=== PATIENT | female | born 1955 | race Caucasian/White ===

== ENCOUNTER 2019-10-05 10:13 | Inpatient (IN) | payer OTHER ==
[~2019-10-05] VITALS: Ht 167.6 cm; Wt 43.5 kg
[2019-10-05 10:20] VITALS: BP 218/119
[2019-10-05] MEDS ORDERED: TOPROL XL50 MG PO (10:25)
[2019-10-05] MEDS ORDERED: XANAX 0.25 MG0.25 MG PO (10:26)
[2019-10-05] MEDS ORDERED: HYDROCODON-ACE1 EAC5 PO (10:26)
[2019-10-05 10:54] LABS: URINE BILIRUBIN NEGATIVE (Negative); URINE BLOOD NEGATIVE (Negative); URINE CLARITY CLEAR; URINE COLOR YELLOW; URINE GLUCOSE-RANDOM NEGATIVE (Negative); URINE KETONES NEGATIVE (Negative); URINE LEUKOCYTES-REFLEX NEGATIVE (Negative); URINE NITRITE-REFLEX NEGATIVE (Negative); URINE PROTEIN NEGATIVE (Negative); URINE UROBILINOGEN 0.2 E.U./dl (0.2-1.0)
[2019-10-05 10:56] LABS: HEMATOCRIT 44.5 % (37.0-47.0); HEMOGLOBIN 14.8 gm/dL (12.0-15.0); MCH 30.5 pg (26.0-34.0); MCHC 33.3 g/dL (28.0-37.0); MCV 91.6 fL (80.0-100.0); MPV 10.2 fl. (7.2-11.1); NUCLEATED RBCS 0 /100WBC; PLATELET COUNT* 261 thou/uL (150-400); RBC 4.86 mil/uL (4.20-5.00); RDW-CV 16.4 % (10.5-14.5); WBC 9.1 thou/uL (4.0-11.0)
[2019-10-05 11:12] LABS: INFLUENZA A ANTIGEN Negative (Negative); INFLUENZA B ANTIGEN Negative (Negative)
[2019-10-05 11:24] LABS: CALCIUM 8.7 mg/dL (8.5-10.1); CREATININE 0.9 mg/dL (0.6-1.3); POTASSIUM 3.6 mmol/L (3.5-5.1)
[2019-10-05 11:35] LABS: ALBUMIN 3.3 g/dL (3.4-5.0); TOTAL BILIRUBIN 0.3 mg/dL (<0.1-1.0)
[2019-10-05 11:56] LABS: ABSOLUTE EOSINOPHILS 0.1 thou/uL (0.0-0.7); ABSOLUTE LYMPHOCYTES 1.1 thou/uL (0.8-5.3); ABSOLUTE MONOCYTES 0.3 thou/uL (0.0-1.2); ABSOLUTE NEUTROPHILS 7.6 thou/uL (1.6-8.1); ANISOCYTOSIS 1+; PLATELET ESTIMATE ADEQUATE; POIKILOCYTOSIS 1+
--- NOTE | 2019-10-05 15:07 | NUR ---
REPORT GIVEN TO TERESSA MONTEMAYOR WHO IS TO ASSUME PT CARE INPATIENT NURSE.
[2019-10-05 15:10] VITALS: BP 164/107; BP 164/96
[2019-10-05 15:44] VITALS: BP 149/89
--- NOTE | 2019-10-05 17:26 | NUR ---
PT ADMITTED VIA CART FROM ED TO FLOOR AT 1520, REPORT RECEIVED FROM TERESSA KENNEDY. PT ORIENTED TO ROOM AND CALL LIGHT. ADMISSION ASSESSMENT AND HISTORY CHARTED. PT IN ENHANCED ISOLATION TO RULEOUT COVID. PT ABLE TO ANSWER ORIENTATION QUESTIONS APPROPRIATELY BUT HAS INTERMITTENT AUDIBLE AND VISUAL HALLUCINATIONS. PT HAS SCATTERED THOUGHTS AND WORD SALAD. PT REDIRECTABLE, MED SURGE STATUS, ON RA SAT 95%, PT DENIES ANY PAIN OR SHORTNESS OF BREATH. PT STATES SHE HASN'T SLEPT IN 4 DAYS DUE TO RUNNING OUT OF XANAX. EMPTY BOTTLE OF 30 DAY RX OF NORCO 70 TABS OF 10 MG FILLED FOUND IN JACKET POCKET. SEPSIS SCREENING COMPLETE, PT SCREENED NEGATIVE. BED ALARM IN PLACE, BED IN LOW POSITION, CALL LIGHT WITHIN REACH, WILL CONTINUE POC.
[2019-10-05 22:30] VITALS: BP 167/90
[2019-10-06 04:00] VITALS: BP 168/102
[2019-10-06 04:38] LABS: ABSOLUTE BASOPHILS 0.1 thou/uL (0.0-0.2); ABSOLUTE EOSINOPHILS 0.1 thou/uL (0.0-0.7); ABSOLUTE MONOCYTES 0.5 thou/uL (0.0-1.2); ABSOLUTE NEUTROPHILS 3.7 thou/uL (1.6-8.1); EOSINOPHILS 1.8 %; HEMATOCRIT 38.3 % (37.0-47.0); LYMPHOCYTES 31.6 %; MCH 30.7 pg (26.0-34.0); MCHC 33.4 g/dL (28.0-37.0); MCV 91.8 fL (80.0-100.0); MONOCYTES 7.3 %; MPV 10.2 fl. (7.2-11.1); NUCLEATED RBCS 0 /100WBC; POLYS 58.3 %; RBC 4.17 mil/uL (4.20-5.00); RDW-CV 16.4 % (10.5-14.5); WBC 6.3 thou/uL (4.0-11.0)
[2019-10-06 04:51] LABS: HEMOGLOBIN 12.8 gm/dL (12.0-15.0); PLATELET COUNT* 186 thou/uL (150-400)
[2019-10-06 05:03] LABS: ALBUMIN 2.6 g/dL (3.4-5.0); CALCIUM 7.7 mg/dL (8.5-10.1); CREATININE 0.8 mg/dL (0.6-1.3); POTASSIUM 3.1 mmol/L (3.5-5.1); TOTAL BILIRUBIN 0.3 mg/dL (<0.1-1.0); TOTAL PROTEIN 6.3 g/dL (6.4-8.2)
[2019-10-06 08:00] VITALS: BP 165/96
--- NOTE | 2019-10-06 09:00 | NUR ---
ASSUMED CARE OF PT AT 0730. PT RESTING IN BED. PT A&0X4, MORE ALERT AND COHERENT TODAY-NO HAULLICINATIONS. PT STATES "I SLEPT THE BEST I HAVE IN YEARS LAST NIGHT" I FEEL SO MUCH BETTER TODAY. PT COMPLAINED OF PAIN TO BACK-TREATED WITH PRN BY NOC SHIFT EARLY THIS AM-REFER TO EMAR. PT MED SURG STATUS. ON RA SAT UPPER 90'S-CLEAR LUNG SOUNDS. PT DENIES ANY SHORTNESS OF BREATH. PT UP AD SHENA IN ROOM. IV ANTIBIOTICS GIVEN THIS AM. REFER TO EMAR. PT GOAL FOR TODAY IS DISCHARGE PLANNING TO HOME. AM ASSESSMENT CHARTED. MEDICATIONS PER SEP. PT REPOSITIONS SELF. HOURLY ROUNDING OBSERVED. BED IN LOW POSITION. CALL LIGHT WITHIN REACH. WILL CONTINUE PLAN OF CARE.
--- NOTE | 2019-10-06 11:20 | EKG ---
[place] [address] ELECTROCARDIOGRAM REPORT Name: MACARIO BRIONES Room: [address] ADM IN M.R.#: [id number] Admission: 10/05/19 Attend Phys: Rell Chow Discharge: Date of : 59 Date of Service: 10/05/19 1045 Report #: [id number] THIS REPORT FOR: //name// [facility] ED Test Date: 2019-10-05 Test Time: 10:45:09 Pat Name: MACARIO BRIONES Department: Room: [facility] Gender: F Strategic Intelligence Officer: : 1955 Requested By: Rick Tellez Order Number: [id number] MD: Matt Hernandez Measurements Intervals [place] Rate: 78 P: 0 SC: 129 QRS: 57 QRSD: 76 T: 63 QT: 380 QTc: 433 Interpretive Statements Sinus rhythm Right atrial enlargement Consider left ventricular hypertrophy No previous ECG available for comparison Electronically Signed On 10-06-2019 11:19:04 CDT by Matt Hernandez [email or web address] <ELECTRONICALLY SIGNED> By: Jewell Hernandez MD, [facility] 10/06/19 1119 1045 1045 Jewell Hernandez MD, [facility] /EPI
[2019-10-06] MEDS ORDERED: MELATONIN10 M1 PO (13:39)
[2019-10-06] MEDS ORDERED: LEVAQUIN 750 M750 MG PO (13:40)
[2019-10-06] MEDS ORDERED: PLAQUENIL200 MG PO (13:44)
[2019-10-06 13:46] VITALS: BP 165/96
--- NOTE | 2019-10-06 15:40 | NUR ---
DISCHARGE ORDERS RECEIVED. DISCHARGE INSTRUCTIONS, CARE NOTES, SCRIPTS AND FOLLOW UP APPTS GIVEN TO PT. PT COMMUNICATES UNDERSTANDING OF DISCHARGE TEACHING. IV REMOVED. PT MED SURG STATUS. PT DISCHARGED WITH ALL BELONGINGS AND PAPERWORK VIA WHEELCHAIR WITH NURSING STAFF TO DAUGHTERS OWN PERSONAL VEHICLE. PT COMMUNICATES UNDERSTANDING OF COVID 19 QUARANTINE INSTRUCTIONS AND SENT WITH PRINT OUT TO FOLLOW.
== END 2019-10-06 15:40 | disposition home or self-care (01) | DRG 194 ==
LOC: M.ERS 10:13 → M.TBA-ER 12:34 → M.2W 15:30
PROVIDERS: Emergency Medicine Emergency Medical Services; ADMIT Internal Medicine
DX: J18.9 Pneumonia, unspecified organism (principal); R65.10 Systemic inflammatory response syndrome (SIRS) of non-infectious origin without acute organ dysfunction; E44.0 Moderate protein-calorie malnutrition; G93.40 Encephalopathy, unspecified; F17.210 Nicotine dependence, cigarettes, uncomplicated; I10 Essential (primary) hypertension; Z28.21 Immunization not carried out because of patient refusal; Z68.1 Body mass index [BMI] 19.9 or less, adult; Z88.8 Allergy status to other drugs, medicaments and biological substances; Z83.3 Family history of diabetes mellitus